=== PATIENT | male | born 1995 | race Two or more races ===

== ENCOUNTER 2019-10-02 02:26 | Emergency (ER) | payer SELFPAY ==
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
== END 2019-10-02 02:50 ==
LOC: JD.ED 02:26
DX: Z02.89 Encounter for other administrative examinations (principal)
CPT/HCPCS: 99282